=== PATIENT | male | born 1990 | race Caucasian/White ===

== ENCOUNTER 2021-08-24 15:12 | Emergency (ER) | payer BC ==
[2021-08-24] MEDS ORDERED: Ketorolac Tromethamine 30 MG/ML VIAL ONE (15:53)
== END 2021-08-24 16:09 | disposition home or self-care (01) ==
LOC: MADERS 15:12
DX: S33.5XXA Sprain of ligaments of lumbar spine, initial encounter (principal); X50.9XXA Other and unspecified overexertion or strenuous movements or postures, initial encounter
CPT/HCPCS: 96372; 99283; J1885

== ENCOUNTER 2022-08-08 09:46 | Emergency (ER) | payer BC | END 2022-08-08 10:40 | disposition home or self-care (01) | LOC: MADERS 09:46 | DX: M10.9 Gout, unspecified (principal); F17.220 Nicotine dependence, chewing tobacco, uncomplicated ==

== ENCOUNTER 2023-02-27 14:59 | Emergency (ER) | payer BC, SELFPAY ==
[2023-02-27] MEDS ORDERED: Ketorolac Tromethamine 30 MG/ML VIAL ONE (15:42)
[2023-02-27] MEDS ORDERED: predniSONE 20 MG TAB ONE (15:42)
[2023-02-27] MEDS ORDERED: predniSONE 10 MG TAB ONE (15:42)
== END 2023-02-27 15:50 | disposition home or self-care (01) ==
LOC: MADERS 14:59
DX: M10.9 Gout, unspecified (principal); F17.220 Nicotine dependence, chewing tobacco, uncomplicated
CPT/HCPCS: 96372; 99283; J1885; J7512

== ENCOUNTER 2023-05-27 12:44 | Emergency (ER) | payer SELFPAY ==
[2023-05-27] MEDS ORDERED: Ketorolac Tromethamine 30 MG/ML VIAL ONE (13:27)
== END 2023-05-27 13:47 | disposition home or self-care (01) ==
LOC: MADERS 12:44
DX: M10.9 Gout, unspecified (principal); M25.571 Pain in right ankle and joints of right foot; F17.220 Nicotine dependence, chewing tobacco, uncomplicated
CPT/HCPCS: 96372; 99283; J1885